=== PATIENT | male | born 1955 ===

== ENCOUNTER → 2017-07-08 | Outpatient (CLI) | payer MEDICARE | LOC: RESP 19:38 | PROVIDERS: ATTEND Physician Assistant | DX: G47.33 Obstructive sleep apnea (adult) (pediatric) (principal); G47.61 Periodic limb movement disorder; G47.36 Sleep related hypoventilation in conditions classified elsewhere; E66.9 Obesity, unspecified ==

== ENCOUNTER → 2017-11-23 | Outpatient (REF) | payer MEDICARE ==
[2017-11-23 10:27] LABS: PLATELET COUNT, AUTOMATED 200 K/uL (150-450)
== END ==
LOC: ZZSENDIN 10:12
PROVIDERS: ATTEND Physician Assistant
DX: E29.1 Testicular hypofunction (principal)
CPT/HCPCS: 85025

== ENCOUNTER 2018-02-08 00:39 | Day surgery (SDC) | payer MEDICARE ==
[~2018-02-08] VITALS: Ht 186.7 cm; Wt 114.8 kg
[~2018-02-08 00:39] MED LIST: ALBU8.5H IH; AMLO1TAB51 PO; ASPI-1471 PO; ATEN-1 PO; PRAV20TA66 PO; SITA1TBM4 PO; TEST90SO TD
[2018-02-08] MEDS ORDERED: NORMOSOL R SOLN(*) 1000 ML BAG 1,000 ML IV PRN (06:45)
[2018-02-08] MEDS ORDERED: INFLUENZA VIRUS VAC 0.5ML SYR IM ONLY ONE (06:45)
[2018-02-08] MEDS ORDERED: LIDOCAINE/SOD BICARB 8.4% SYR ID ONE (06:45)
[2018-02-08 10:22] VITALS: BP 152/94
[2018-02-08] MEDS ORDERED: ATENOLOL 25 MG TAB PO ONE (10:45)
[2018-02-08] MEDS ORDERED: PROPOFOL EMUL(*) 10MG/ML 20 ML 20 ML ONE ×2 (10:50→11:21)
[2018-02-08 11:32] VITALS: BP 130/91
[2018-02-08 11:58] VITALS: BP 130/78
[2018-02-08 12:00] VITALS: BP 135/82
[2018-02-08 12:01] VITALS: BP 124/82
== END 2018-02-08 12:11 | disposition home or self-care (01) ==
LOC: OR 00:39
PROVIDERS: ATTEND Family Medicine
DX: Z12.11 Encounter for screening for malignant neoplasm of colon (principal); Z80.0 Family history of malignant neoplasm of digestive organs; E11.9 Type 2 diabetes mellitus without complications; Z23 Encounter for immunization
CPT/HCPCS: 00812; 36416; 82948; A9270; G0121; J2704; Q2037; 90674

== ENCOUNTER 2018-10-19 19:18 | Emergency (ER) | payer MEDICARE ==
[2018-10-19] MEDS ORDERED: fentaNYL CITR 100 MCG/2 ML AMP IVP ONE (19:25)
[2018-10-19] MEDS ORDERED: ASPIRIN 81 MG CHEW PO ONE (19:25)
[2018-10-19] MEDS ORDERED: ONDANSETRON 4 MG/2 ML VIAL IVP ONE (19:25)
[2018-10-19] MEDS ORDERED: ALBUTEROL/IPRATROPIUM 3 ML NEB NEB ONE ×2 (19:35→23:05)
--- NOTE | 2018-10-19 19:42 | ER Report ---
History and Physical Time Seen By MD: 19:19 HPI/ROS CHIEF COMPLAINT: Right elbow pain HISTORY OF PRESENT ILLNESS: 62-year-old male smoker with a known history of coronary artery disease, status post numerous stents presents with right elbow pain with diaphoresis. Patient has a distant history of cardiac disease. He is at, no symptoms recently. He injured his right elbow playing [employer] on Monday with his grandson. He's been wearing a brace since that time. Tonight, shortly after dinner, he became severely short of breath with wheezing. Respiration and severe right arm pain 10 out of 10, causing diaphoresis and nausea. Patient has history of numerous back surgeries. REVIEW OF SYSTEMS: Respiratory: As above Cardiovascular: As above Gastrointestinal: No vomiting, no abdominal pain. Musculoskeletal: No back pain. Allergies: Coded Allergies: No Known Drug Allergies (Unverified , 01/30/18) Home Meds Active Scripts Hydrocodone Bit/Acetaminophen (HYDROCODON-ACETAMINOPHEN 5-325) 1 Each Tablet, 1 EACH PO Q4-6H PRN for PAIN, #12 TAKE ONE TABLET BY MOUTH EVERY 4-6 HOURS NEEDED FOR PAIN Prov:ELIJAH ERICKSON DO 10/19/18 Reported Medications Testosterone (AXIRON) 30 Mg/1.5 Ml Marla..home advisor, 60 MG TD DAILY 01/30/18 Albuterol Sulfate 90 Mcg/Act (PROAIR HFA 90 MCG/ACT) 8.5 Gm Hfa.aer.ad, 2 PUFF IH Q4-6H PRN for WHEEZING, INHALER 01/30/18 Atenolol (ATENOLOL) 50 Mg Tablet, 0.5 TAB PO DAILY, TAB 01/30/18 Pravastatin Sodium (PRAVASTATIN SODIUM) 20 Mg Tablet, 20 MG PO QDAY 01/30/18 Amlodipine/Atorvastatin (AMLODIPINE-ATORVAST 5-20 MG) 1 Each Tablet, 1 EACH PO QDAY, TAB 01/30/18 Aspirin (ASPIR 81) 81 Mg Tablet.dr, 81 MG PO QDAY, TAB 01/30/18 Sitagliptin Phos/Metformin Hcl (JANUMET XR 50-1,000 MG TABLET) 1 Each Tbmp.24hr, 2 EACH PO QPM 01/30/18 Reviewed Nurses Notes: Yes Old Medical Records Reviewed: Yes Hx Smoking: Yes (1PPD X 40 YRS) Smoking Status: Current: Every Day Smoker Hx Alcohol Use: Yes Constitutional Vital Sign - Last 24 Hours 10/19/18 10/19/18 10/19/18 10/19/18 19:28 19:30 19:30 19:40 Temp 98.0 Pulse 56 57 Resp 20 17 B/P (MAP) 123/99 Pulse Ox 94 95 94 O2 Delivery Room Air Oxy Mask O2 Flow Rate 2.0 4.0 10/19/18 10/19/18 10/19/18 10/19/18 19:40 19:47 19:48 19:50 Pulse 52 54 Resp 22 22 B/P (MAP) 96/57 (70) 94/61 (72) 10/19/18 10/19/18 10/19/18 10/19/18 20:00 20:15 20:30 20:45 Pulse 50 56 Resp 22 18 B/P (MAP) 104/67 (79) 93/39 (57) 132/76 (94) 120/92 (101) Pulse Ox 93 93 10/19/18 10/19/18 10/19/18 10/19/18 20:50 20:55 21:00 21:05 Pulse 63 63 64 66 Resp 9 13 12 12 B/P (MAP) 133/79 (97) Pulse Ox 96 97 97 97 10/19/18 10/19/18 10/19/18 10/19/18 21:10 21:15 21:20 21:25 Pulse 65 61 72 61 Resp 14 10 20 9 B/P (MAP) 162/91 (114) Pulse Ox 98 97 96 97 10/19/18 10/19/18 10/19/18 10/19/18 21:30 21:35 21:40 21:45 Pulse 63 62 65 63 Resp 17 17 17 10 B/P (MAP) 156/75 (102) 142/71 (94) Pulse Ox 97 98 95 94 10/19/18 10/19/18 10/19/18 10/19/18 21:50 21:55 22:00 22:05 Pulse 62 66 66 65 Resp 19 15 6 8 B/P (MAP) 121/66 (84) Pulse Ox 97 95 95 94 10/19/18 10/19/18 10/19/18 10/19/18 22:10 22:15 22:20 22:25 Pulse 67 58 65 63 Resp 14 8 13 15 B/P (MAP) ???/??? (1664) Pulse Ox 95 94 91 95 10/19/18 10/19/18 10/19/18 10/19/18 22:30 22:35 22:36 22:40 Pulse 63 54 53 Resp 11 19 12 B/P (MAP) ???/??? (1664) 131/90 (104) Pulse Ox 92 91 94 10/19/18 10/19/18 10/19/18 10/19/18 22:45 22:50 22:55 23:00 Pulse 55 57 57 59 Resp 20 19 17 19 B/P (MAP) 117/72 (87) 110/66 (81) Pulse Ox 94 94 94 94 10/19/18 10/19/18 10/19/18 10/19/18 23:05 23:10 23:15 23:18 Pulse 66 56 57 Resp 12 22 20 B/P (MAP) 136/81 (99) Pulse Ox 93 92 93 95 O2 Delivery Oxy Mask O2 Flow Rate 3.0 10/19/18 10/19/18 10/19/18 10/19/18 23:18 23:20 23:25 23:29 Pulse 54 54 59 69 Resp 18 7 10 18 Pulse Ox 96 98 10/19/18 10/19/18 23:30 23:35 Pulse 69 59 Resp 11 6 B/P (MAP) ???/??? (1664) Pulse Ox 88 90 Physical Exam Vital signs stable, afebrile, pulse ox normal, normal sinus rhythm on ekg monitor General Appearance: The patient is alert, has no immediate need for airway protection and no current signs of toxicity. Moderate distress, diaphoretic, pale HEENT: Pupils equal and round no injection. Oropharynx without redness or exudate, heavy odor of cigarette smoke Respiratory: Chest is non tender, lungs are clear to auscultation. No wheezing or rails Cardiac: regular rate and rhythm, no murmur Gastrointestinal: Abdomen is soft and non tender, no masses, bowel sounds normal. Musculoskeletal: Neck: Neck is supple and non tender. Extremities have full range of motion and are non tender. No edema, no calf tenderness Skin: No rashes or lesions. DIFFERENTIAL DIAGNOSIS: After history and physical exam differential diagnosis was considered for chest pain including but not limited to myocardial ischemia, pericarditis pulmonary embolus, chest wall pain, pleural inflammation and pul monary infectious causes. Medical Decision Making Data Points Result Diagram: 10/19/18192410/19/181924 Laboratory Hematology Test 10/19/18 19:25 10/19/18 19:46 10/19/18 22:35 Red Blood Count 5.93 M/uL (4.00-5.60) Mean Corpuscular Volume 91.1 fL (80.0-96.0) Mean Corpuscular Hemoglobin 32.1 pg (26.0-33.0) Mean Corpuscular Hemoglobin Concent 35.2 g/dL (32.0-36.0) Red Cell Distribution Width 13.2 % (11.5-14.5) Mean Platelet Volume 9.1 fL (7.2-11.1) Neutrophils (%) (Auto) 46.1 % (39.4-72.5) Lymphocytes (%) (Auto) 42.0 % (17.6-49.6) Monocytes (%) (Auto) 9.1 % (4.1-12.4) Eosinophils (%) (Auto) 2.2 % (0.4-6.7) Basophils (%) (Auto) 0.6 % (0.3-1.4) Nucleated RBC Relative Count (auto) 0.2 /100WBC Neutrophils # (Auto) 5.8 K/uL (2.0-7.4) Lymphocytes # (Auto) 5.3 K/uL (1.3-3.6) Monocytes # (Auto) 1.2 K/uL (0.3-1.0) Eosinophils # (Auto) 0.3 K/uL (0.0-0.5) Basophils # (Auto) 0.1 K/uL (0.0-0.1) Nucleated RBC Absolute Count (auto) 0.03 K/uL Erythrocyte Sedimentation Rate 10 mm/HOUR (0-20) D-Dimer Quantitative (PE/DVT) 0.43 ug/ml (0-0.50) Sodium Level 141 mmol/L (137-145) Potassium Level 4.0 mmol/L (3.5-5.0) Chloride Level 100 mmol/L (98-107) Carbon Dioxide Level 28 mmol/L (22-30) Blood Urea Nitrogen 17 mg/dl (9-21) Creatinine 1.00 mg/dl (0.66-1.25) Glomerular Filtration Rate Calc > 60.0 Random Glucose 166 mg/dl (75-110) Calcium Level 8.8 mg/dl (8.4-10.2) Total Bilirubin 0.7 mg/dl (0.2-1.3) Aspartate Amino Transf (AST/SGOT) 40 U/L (0-35) Alanine Aminotransferase (ALT/SGPT) 52 U/L (0-56) Alkaline Phosphatase 52 U/L (0-126) C-Reactive Protein < 0.5 mg/dl (<1.0) B-Type Natriuretic Peptide 28 pg/ml (0-100) Total Protein 7.1 g/dl (6.3-8.2) Albumin 4.2 g/dl (3.5-5.0) Whole Blood Glucose 172 mg/DL (75-110) Troponin I < 0.012 ng/ml Chemistry Test 10/19/18 19:25 10/19/18 19:46 10/19/18 22:35 White Blood Count 12.6 k/uL (4.5-11.0) Red Blood Count 5.93 M/uL (4.00-5.60) Hemoglobin 19.0 g/dL (14.0-18.0) Hematocrit 54.0 % (42.0-52.0) Mean Corpuscular Volume 91.1 fL (80.0-96.0) Mean Corpuscular Hemoglobin 32.1 pg (26.0-33.0) Mean Corpuscular Hemoglobin Concent 35.2 g/dL (32.0-36.0) Red Cell Distribution Width 13.2 % (11.5-14.5) Platelet Count 212 K/uL (150-450) Mean Platelet Volume 9.1 fL (7.2-11.1) Neutrophils (%) (Auto) 46.1 % (39.4-72.5) Lymphocytes (%) (Auto) 42.0 % (17.6-49.6) Monocytes (%) (Auto) 9.1 % (4.1-12.4) Eosinophils (%) (Auto) 2.2 % (0.4-6.7) Basophils (%) (Auto) 0.6 % (0.3-1.4) Nucleated RBC Relative Count (auto) 0.2 /100WBC Neutrophils # (Auto) 5.8 K/uL (2.0-7.4) Lymphocytes # (Auto) 5.3 K/uL (1.3-3.6) Monocytes # (Auto) 1.2 K/uL (0.3-1.0) Eosinophils # (Auto) 0.3 K/uL (0.0-0.5) Basophils # (Auto) 0.1 K/uL (0.0-0.1) Nucleated RBC Absolute Count (auto) 0.03 K/uL Erythrocyte Sedimentation Rate 10 mm/HOUR (0-20) D-Dimer Quantitative (PE/DVT) 0.43 ug/ml (0-0.50) Glomerular Filtration Rate Calc > 60.0 Calcium Level 8.8 mg/dl (8.4-10.2) Total Bilirubin 0.7 mg/dl (0.2-1.3) Aspartate Amino Transf (AST/SGOT) 40 U/L (0-35) Alanine Aminotransferase (ALT/SGPT) 52 U/L (0-56) Alkaline Phosphatase 52 U/L (0-126) C-Reactive Protein < 0.5 mg/dl (<1.0) B-Type Natriuretic Peptide 28 pg/ml (0-100) Total Protein 7.1 g/dl (6.3-8.2) Albumin 4.2 g/dl (3.5-5.0) Whole Blood Glucose 172 mg/DL (75-110) Troponin I < 0.012 ng/ml Coagulation Test 10/19/18 19:25 D-Dimer Quantitative (PE/DVT) 0.43 ug/ml EKG/Imaging EKG Interpretation 12 lead EK Rhythm: Sinus bradycardia, rate 55 bpm Wood: normal QRS: normal ST segments: normal, no evidence of ischemia or dysrhythmia, no old EKGs for comparison Imaging X-ray: Single view portable chest was obtained. I viewed the images myself on the PACS system. My interpretation of the images is: Infiltrate, no effusion, normal mediastinum. The radiologist interpretation had no clinically significant variation from this interpretation. X-ray: Right elbow, 3 views was obtained. I viewed the images myself on the PACS system. My interpretation of the images is: Fracture no dislocation or malalignment. The radiologist interpretation had no clinically significant variation from this interpretation. ED Course/Re-evaluation Clinical Indication for ER IV: IV Access ED Course Patient was admitted to an examination room. H&P was done. The difficult diagnosis was considered. Patient with acute severe right elbow pain that has gotten progressively worse over the last 3 days. Patient was playing [employer] with his grandson when he thought he injured his elbow. On clinical presentation. There is warmth and erythema with a large effusion to the right elbow joint. Patient describes no severe specific movements which would suggest a significant mechanism of injury. Patient does have a known history of gout previously in his toes. Clinically, I think to his right elbow suggest gout. Patient is reluctant to have arthrocentesis performed. He was also treated for shortness of breath and anxiety with DuoNeb's 2. Diagnostic evaluation shows an EKG without obvious changes. Patient was medicated with fentanyl 50 g IV, Zofran 4 mg IV and Toradol 30 motor grams IV. Patient had one hour and a 3 hour troponins, which were unremarkable. His d-dimer was negative. His BMP was negative. Patient responded to nebulizer treatments for his difficulty breathing. Patient's advised ibuprofen 800 mg 3 times daily. He is advised to apply heating pad to his right elbow. He is given a limited supply of Lortab for temporary pain relief. He is advised to follow-up with his primary care physician if unimproved in 3-5 days. Decision to Disposition Date: Oct 19, 2018 Decision to Disposition Time: 23:30 Depart Departure Latest Vital Signs Vital Signs Date Time Temp Pulse Resp B/P (MAP) Pulse Ox O2 Delivery O2 Flow Rate FiO2 10/19/18 23:35 59 6 90 10/19/18 23:30 ???/??? (1665) 10/19/18 23:18 Oxy Mask 3.0 10/19/18 19:28 98.0 Impression: Primary Impression: Right elbow pain Additional Impressions: Gout attack Vasovagal near syncope Condition: Improved Disposition: HOME OR SELF-CARE New Scripts Hydrocodone Bit/Acetaminophen (HYDROCODON-ACETAMINOPHEN 5-325) 1 Each Tablet 1 EACH PO Q4-6H PRN for PAIN, #12 TAKE ONE TABLET BY MOUTH EVERY 4-6 HOURS NEEDED FOR PAIN Prov: ELIJAH ERICKSON DO 10/19/18 Patient Instructions: Gout (ED), Near Syncope (ED) Additional Instructions: Take ibuprofen 200 mg 3-4 tablets 3 times a day with food Apply heating pad to your right elbow Take hydrocodone for additional pain relief as needed Follow up with primary care if unimproved in 4-5 days Problem Qualifiers Additional Impressions: Gout attack Gout site: elbow Gout etiology: unspecified cause Laterality: right Qualified Codes: M10.9 - Gout, unspecified ELIJAH ERICKSON DO Oct 19, 2018 19:42
--- NOTE | 2018-10-19 19:49 | EKG ---
FACILITY: [facility] - [place] PATIENT NAME: LANRE BRADSHAW : [id number] MR: [id number] V: [id number] EXAM DATE: ORDERING PHYSICIAN: ELIJAH ERICKSON TECHNOLOGIST: Test Reason : cough and SOB Blood Pressure : / mmHG Vent. Rate : 055 BPM Atrial Rate : 055 BPM P-R Int : 152 ms QRS Dur : 074 ms QT Int : 430 ms P-R-T Axes : 000 100 067 degrees QTc Int : 411 ms Sinus bradycardia Otherwise normal ECG No previous ECGs available Confirmed by ANALI FERNANDEZ ([id number]) on 10/20/2018 6:27:43 AM Referred By: Confirmed By:ANALI FERNANDEZ
--- NOTE | 2018-10-19 20:08 | RADIOLOGY IMAGING REPORT ---
FACILITY: [facility] PATIENT NAME: Porfirio Garcia : 1955 MR: [id number] V: [id number] EXAM DATE: ORDERING PHYSICIAN: ELIJAH ERICKSON TECHNOLOGIST: Location: [facility] Patient: Porfirio Garcia : 1955 Visit/Account:[id number] Date of Sevice: 10/19/2018 Technique: CHEST SINGLE AP HISTORY: Chest Pain COMPARISON: None available Findings: The lungs are clear. No pleural effusion or pneumothorax. The cardiomediastinal silhouett e is unremarkable. Impression: 1. No acute cardiopulmonary process. Report Dictated By: Nikko Coughlin DO at 10/19/2018 7:59 PM Report E-Signed By: Nikko Coughlin DO at 10/19/2018 8:01 PM WSN:[id number]
[2018-10-19] MEDS ORDERED: KETOROLAC 30 MG/ML VIAL IVP ONE (20:30)
[2018-10-19 20:32] LABS: PLATELET COUNT, AUTOMATED 212 K/uL (150-450)
--- NOTE | 2018-10-19 20:37 | RADIOLOGY IMAGING REPORT ---
FACILITY: [facility] PATIENT NAME: Porfirio Garcia : 1955 MR: [id number] V: [id number] EXAM DATE: ORDERING PHYSICIAN: ELIJAH ERICKSON TECHNOLOGIST: Location: [facility] Patient: Porfirio Garcia : 1955 Visit/Account:[id number] Date of Sevice: 10/19/2018 ELBOW 3 VIEW RIGHT Indication: Right elbow pain after injury. Comparison: None Available Findings: Three views of the right elbow. No acute fracture or dislocation. No joint effusion. There appears to be a tiny chronic avulsion off the olecranon spur. No bony lesion or periosteal abnormality. So ft tissues are unremarkable. IMPRESSION: 1. No acute osseous abnormality of the right elbow. Report Dictated By: Bebeto Westfall at 10/19/2018 8:30 PM Report E-Signed By: Bebeto Westfall at 10/19/2018 8:32 PM WSN:[id number]
[2018-10-19] MEDS ORDERED: LOR5/325 PO (23:33)
[2018-10-19] MEDS ORDERED: ACET/HYDROC 5/325MG TH ER ONLY 2 TAB/BOTTLE PO ONE (23:40)
== END 2018-10-19 23:43 | disposition home or self-care (01) ==
LOC: ER 19:25
DX: M10.9 Gout, unspecified (principal); M25.521 Pain in right elbow; R55 Syncope and collapse
CPT/HCPCS: 36415; 36416; 71045; 73080; 82948; 83880; 84484; 85025; 85379; 85651; 86140; 93005; 94640; 99284; A9270; J1885; J2405; J3010; J7620; 82040; 82247; 82310; 82374; 82435; 82565; 82947; 84075; 84132; 84155; 84295; 84450; 84460; 84520

== ENCOUNTER → 2018-11-13 | Outpatient (CLI) | payer MEDICARE ==
[~2018-11-13] MED LIST changes: +LOR5/325 PO; +REGADENOSON 0.4 MG/5 ML SYR ONE
--- NOTE | 2018-11-13 12:42 | RADIOLOGY IMAGING REPORT ---
FACILITY: [facility] PATIENT NAME: Porfirio Garcia : 1955 MR: [id number] V: [id number] EXAM DATE: ORDERING PHYSICIAN: RAUL DAVILA TECHNOLOGIST: Location: [facility] [place] Patient: Porfirio Garcia : 1955 Visit/Account:[id number] Date of Sevice: 11/13/2018 EXAMINATION: Single isotope SPECT imaging with regadenoson infusion and gated SPECT imaging. DATE OF EXAMINATION: 11/13/2018. DATE OF INTERPRETATION: 11/13/2018. REQUESTING PHYSICIAN: RAUL DAVILA. Sinus bradycardia INDICATION: The patient is a 63-year-old male evaluated for chest pressure with a history of heart a ttack. PROCEDURE: After informed consent the patient received an intravenous injection of 11.1 mCi of Tc-99 m sestamibi followed at an appropriate time interval by rest imaging. The patient then subsequently received an intravenous infusion of 0.4 mg of regadenoson per protocol without complication. Resting heart rate was 1 bpm with a peak heart rate of 67 bpm. Blood pressure at rest was 142 / 77 and foll owing infusion was 142 / 77. Baseline EKG demonstrates sinus bradycardia. There were no EKG changes of ischemia following infusion. Symptoms were nonspecific. The patient then received an intravenou s injection of 28.9 mCi of Tc-99m sestamibi followed by stress imaging. RAW DATA: Examination of the summed raw data revealed a adequate quality study. No significant artif act noted. MYOCARDIAL PERFUSION: The tomographic images demonstrate normal myocardial tracer uptake in all segm ents. No evidence of inducible ischemia or prior infarction. No transient ischemic dilation. GATED IMAGES: The gated images demonstrate LVEF 66%. Normal regional wall motion. IMPRESSION: 1. Nondiagnostic pharmacologic stress ECG 2. Normal myocardial perfusion scan. 3. Normal LV systolic function; LVEF 66%. 4. Based on the results of this exam, the patient appears to be at low risk for future cardiovascular events. Report Dictated By: Alejandro Carty at 11/13/2018 12:32 PM Report E-Signed By: Alejandro Carty at 11/13/2018 12:35 PM WSN:[id number]
--- NOTE | 2018-11-14 08:42 | RT STRESS TEST REPORT ---
FACILITY: [facility] [place] PATIENT NAME: LANRE BRADSHAW : [id number] MR: [id number] V: [id number] EXAM DATE: ORDERING PHYSICIAN: RAUL DAVILA TECHNOLOGIST: Karoline Acquisition Time: 2018-11-13 10:00:35 Total Exercise Time: 00:01:00 Test Indications: Chest pressure/ hx heart attack Medications: See chart Protocol: LEXISCAN Max HR: 067 BPM 42% of Pred: 159 BPM Max BP: 142/077 mmHG Max Work Load: 1.0 METS SEE NUC MED REPORT INTER BY DR SHARON GARNER Confirmed by FADY GARNER ([id number]), photographic editor SHIRLENE CROCKETT ([id number]) on 11/14/2018 8:39:47 AM Referred By: Overread By: FADY GARNER
== END ==
LOC: NUC 00:50
PROVIDERS: ATTEND Physician Assistant
DX: R07.89 Other chest pain (principal)
CPT/HCPCS: 78452; 93017; A9500; J2785